=== PATIENT | male | born 1980 | race Caucasian/White ===

== ENCOUNTER 2023-07-31 07:23 | Inpatient (IN) | payer OTHER ==
[~2023-07-31] VITALS: Ht 175.3 cm; Wt 64.3 kg
[2023-07-31] VITALS (23 sets, daily range): BP systolic 107–157; BP diastolic 77–104
[~2023-07-31 07:23] MED LIST: DOXY100 PO; FLUC100 PO; HYDACE5 PO; NAPR500 PO
[2023-07-31 08:00] LABS: BASOPHILS ABSOLUTE AUTO 0.04 K/mm3 (0.00-0.23); BASOPHILS PERCENT AUTO 1 % (0-2); EOSINOPHILS ABSOLUTE AUTO 0.01 K/mm3 (0.00-0.68); EOSINOPHILS PERCENT AUTO 0 % (0-6); Hematocrit 37.8 % (37.0-53.0); Hemoglobin 13.5 g/dL (13.5-17.5); IMMATURE GRAN ABSOLUTE AUTO 0.01 K/mm3 (0.00-0.10); IMMATURE GRAN PERCENT AUTO 0 % (0-1); LYMPHOCYTES ABSOLUTE AUTO 0.83 K/mm3 (0.84-5.20); LYMPHOCYTES PERCENT AUTO 19 % (21-46); MONOCYTES ABSOLUTE AUTO 0.75 K/mm3 (0.16-1.47); MONOCYTES PERCENT AUTO 17 % (4-13); Mean Corpuscular HGB 33.1 pg (26.0-34.0); Mean Corpuscular HGB Conc 35.7 g/dL (31.5-36.5); Mean Corpuscular Volume 93 fL (80-100); Mean Platelet Volume 10.3 fL (9.1-12.4); NEUTROPHILS ABSOLUTE AUTO 2.83 K/mm3 (1.96-9.15); NEUTROPHILS PERCENT AUTO 63 % (41-73); Platelet Count 85 K/mm3 (150-400); RDW Coefficient Variation 12.9 % (11.7-14.2); RDW Standard Deviation 44.2 fL (35.1-46.3); Red Blood Cell Count 4.08 M/mm3 (4.30-5.90); White Blood Cell Count 4.47 K/mm3 (4.00-11.30)
[2023-07-31 08:22] LABS: Albumin, Blood 4.4 g/dL (3.4-5.0); Albumin/Globulin Ratio 1.1 (0.8-1.8); Bilirubin, Total 1.2 mg/dL (0.1-1.0); Bun/Creatinine Ratio 12.8 (12.0-20.0); Calcium, Blood 9.3 mg/dL (8.5-10.1); Creatinine, Blood 0.55 mg/dL (0.60-1.20); Potassium, Blood 3.1 mmol/L (3.5-5.5); Total Protein, Blood 8.4 g/dL (6.4-8.2)
[2023-07-31 10:37] LABS: International Normalized Ratio 0.98; Prothrombin Time Results 10.3 Sec (9.7-11.5)
--- NOTE | 2023-07-31 13:02 | NUR ---
ASSUMED CARE CARE WAS ASSUMED OF PT AT APPROXIMATELY 1200, PT TRANSFERED FROM ED. PT A/O X4, PT ABLE TO ANSWER QUESTIONS APPROPRIATELY AND MAKE NEEDS KNOWN. PT'S CIWA SCORE 18. PT EXTREMELY TREMULOUS. PT STATES H/X OF SEIZURES WITH ETOH WITHDRAWAL, NO SEIZURE ACTIVITY NOTED SINCE ARRIVAL TO UNIT. PT DENIES HALLUCINATIONS, TACTILE/AUDITORY DISTURBANCES. PT ON RA, O2 SATS > 92%. CARDIAC MONITORING REFLECTS NSR, HR 70s. SBP HYPERTENSIVE UPON ARRIVAL TO UNIT, SBP 120s AT THIS TIME. POTASSIUM AND MAG REPLACING THROUGH PIV AT THIS TIME. DURING HX PT STATES THAT HE DRINKS 12 BEERS/DAY. LAST DRINK WAS AT 0300 TODAY (07/31). PT STATES HE USED TO DRINK MORE THAN 18 BEERS/DAY BUT COULD NOT REMEMBER WHEN HE STARTED DECREASING HIS USE. PT STATES HE HAS BEEN HOSPITALIZED FOR ETOH WITHDRAWL IN THE PAST. PT STATES THAT WHEN HE DID HAVE A SEIZURE HE WAS AT HOME AND THEN WENT TO THE HOSPITAL AFTERWARDS, UNCLEAR WHEN.
[2023-07-31 17:11] LABS: Albumin, Blood 3.7 g/dL (3.4-5.0); Anion Gap 9 mmol/L (6-16); Blood Urea Nitrogen 4 mg/dL (8-24); Bun/Creatinine Ratio 6.3 (12.0-20.0); CO2, Blood 28 mmol/L (21-32); Calcium, Blood 8.4 mg/dL (8.5-10.1); Chloride, Blood 101 mmol/L (98-108); Creatinine, Blood 0.63 mg/dL (0.60-1.20); Glomerular Filtration Rate 123 (60-); Glucose, Blood 134 mg/dL (70-99); Phosphorus, Blood 2.7 mg/dL (2.5-4.9); Potassium, Blood 3.7 mmol/L (3.5-5.5); Sodium, Blood 138 mmol/L (136-145)
--- NOTE | 2023-07-31 18:10 | NUR ---
SHIFT SUMMARY PT REMAINS A/O X4. CIWA SCORE CURRENTLY 9. PT CONTINUES TO BE VERY TREMULOUS, BUT DENIES HALLUCINATIONS AND/OR AUDITORY/TACTILE DISTURBANCES. PT ON RA, O2 SATS > 95%. CARDIAC MONITORING REFLECTS NSR, HR 70s. BP STABLE T/O SHIFT. NS KCL INFUSING. PT ABLE TO USE URINAL AT BEDSIDE, BUT NEEDS ASSISTANCE GETTING TO EDGE OF BED. WILL CONTINUE TO MONITOR UNTIL CARE IS TRANSITIONED TO NOC SHIFT.
--- NOTE | 2023-07-31 19:58 | NUR ---
SPOKE TO PT MOTHER VIA PHONE, UPDATED HER ON PT CONDITION.
[2023-08-01] VITALS (14 sets, daily range): BP systolic 105–150; BP diastolic 79–102
[2023-08-01 03:49] LABS: BASOPHILS ABSOLUTE AUTO 0.03 K/mm3 (0.00-0.23); BASOPHILS PERCENT AUTO 1 % (0-2); EOSINOPHILS ABSOLUTE AUTO 0.12 K/mm3 (0.00-0.68); EOSINOPHILS PERCENT AUTO 4 % (0-6); Hematocrit 35.5 % (37.0-53.0); Hemoglobin 12.1 g/dL (13.5-17.5); IMMATURE GRAN ABSOLUTE AUTO 0.01 K/mm3 (0.00-0.10); IMMATURE GRAN PERCENT AUTO 0 % (0-1); LYMPHOCYTES ABSOLUTE AUTO 1.01 K/mm3 (0.84-5.20); LYMPHOCYTES PERCENT AUTO 33 % (21-46); MONOCYTES PERCENT AUTO 19 % (4-13); Mean Corpuscular HGB 33.2 pg (26.0-34.0); Mean Corpuscular HGB Conc 34.1 g/dL (31.5-36.5); Mean Platelet Volume 11.3 fL (9.1-12.4); NEUTROPHILS ABSOLUTE AUTO 1.34 K/mm3 (1.96-9.15); NEUTROPHILS PERCENT AUTO 43 % (41-73); Platelet Count 60 K/mm3 (150-400); RDW Coefficient Variation 12.9 % (11.7-14.2); RDW Standard Deviation 46.1 fL (35.1-46.3); Red Blood Cell Count 3.64 M/mm3 (4.30-5.90); White Blood Cell Count 3.11 K/mm3 (4.00-11.30)
[2023-08-01 03:54] LABS: Mean Corpuscular Volume 98 fL (80-100)
[2023-08-01 04:08] LABS: Albumin, Blood 3.6 g/dL (3.4-5.0); Albumin/Globulin Ratio 1.1 (0.8-1.8); Bilirubin, Total 1.8 mg/dL (0.1-1.0); Bun/Creatinine Ratio 5.4 (12.0-20.0); Calcium, Blood 8.4 mg/dL (8.5-10.1); Creatinine, Blood 0.73 mg/dL (0.60-1.20); Globulin, Blood 3.4 g/dL (2.2-4.0); Potassium, Blood 3.8 mmol/L (3.5-5.5)
--- NOTE | 2023-08-01 05:45 | NUR ---
SHIFT SUMMERY PT IS ALERT AND ORIENTED X3, ETOH W/DRAWAL. PRECEDEX STARTED AT 0.2MCG EARLIER IN SHIFT DUE TO W/DRAWAL SYMPTOMS AND PHENOBARBITAL MAX DOSES WERE ADMINISTERED. PT HAS TOLERATED WELL AND STATED THAT HE FEELS "PRETTY GOOD" AT THE CURRENT TIME. HE HAS BEEN SB-SR ON THE FIRE ALARM MECHANIC. BP HAS BEEN WNL. PT HAS BEEN AFEBRILE. HE HAS VOIDED IN THE URINAL. HE HAS BEEN COMPLIANT W/TREATMENTS FOR ME THIS SHIFT. PRECEDEX REMAINS AT 0.2MCG AND HAS NOT HAD TO BE INCREASED OVERNIGHT.
[2023-08-01 14:48] LABS: Source, Urine Voided
[2023-08-01 14:58] LABS: Appearance, Urine Clear (Clear); Bilirubin, Urine Neg (Neg); Blood, Urine 2+ (Neg); Color, Urine Amber (P-Yellow); Glucose Qualitative, Urine 2+ (Neg); Ketones, Urine Neg (Neg); Leukocyte Esterase, Urine Neg (Neg); Nitrite, Urine Neg (Neg); Protein, Urine 2+ (Neg); Specific Gravity, Urine 1.015 (1.003-1.022); Urobilinogen, Urine 1+ (Normal); pH, Urine 6.5 (5.0-8.0)
[2023-08-01 15:18] LABS: Bacteria Few /hpf; Squamous Epithelial Cells Few /hpf (Few); White Blood Cells, Urine 0-2 /hpf (0-5)
[2023-08-01 15:19] LABS: Mucus Light (0-Heavy)
--- NOTE | 2023-08-01 18:28 | NUR ---
Shift summary. Pt very stable this shift, CIWA scores <8. Precedex placed on standby at beginning of shift. Pt independent in room, able to ambulate in and out of bed w/out assistance. Pt able to shower this shift. VS stable, see chart for further details. Will report of to nightshift RN.
[2023-08-02] VITALS (8 sets, daily range): BP systolic 101–129; BP diastolic 72–94
[2023-08-02 01:09] LABS: HBSAG SCREEN Negative (Negative); HCV AB Non Reactive (Non Reactive); HEP A AB, IGM Negative (Negative); HEP B CORE AB, IGM Negative (Negative)
[2023-08-02 03:37] LABS: BASOPHILS ABSOLUTE AUTO 0.05 K/mm3 (0.00-0.23); BASOPHILS PERCENT AUTO 1 % (0-2); EOSINOPHILS ABSOLUTE AUTO 0.12 K/mm3 (0.00-0.68); EOSINOPHILS PERCENT AUTO 3 % (0-6); Hematocrit 37.1 % (37.0-53.0); Hemoglobin 12.8 g/dL (13.5-17.5); IMMATURE GRAN ABSOLUTE AUTO 0.01 K/mm3 (0.00-0.10); IMMATURE GRAN PERCENT AUTO 0 % (0-1); LYMPHOCYTES ABSOLUTE AUTO 0.95 K/mm3 (0.84-5.20); LYMPHOCYTES PERCENT AUTO 23 % (21-46); MONOCYTES ABSOLUTE AUTO 0.59 K/mm3 (0.16-1.47); MONOCYTES PERCENT AUTO 14 % (4-13); Mean Corpuscular HGB 33.4 pg (26.0-34.0); Mean Corpuscular HGB Conc 34.5 g/dL (31.5-36.5); Mean Corpuscular Volume 97 fL (80-100); Mean Platelet Volume 11.2 fL (9.1-12.4); NEUTROPHILS ABSOLUTE AUTO 2.46 K/mm3 (1.96-9.15); NEUTROPHILS PERCENT AUTO 59 % (41-73); Platelet Count 66 K/mm3 (150-400); RDW Coefficient Variation 12.5 % (11.7-14.2); RDW Standard Deviation 44.5 fL (35.1-46.3); Red Blood Cell Count 3.83 M/mm3 (4.30-5.90); White Blood Cell Count 4.18 K/mm3 (4.00-11.30)
[2023-08-02 03:55] LABS: Albumin, Blood 3.7 g/dL (3.4-5.0); Anion Gap 7 mmol/L (6-16); Blood Urea Nitrogen 6 mg/dL (8-24); Bun/Creatinine Ratio 8.7 (12.0-20.0); CO2, Blood 26 mmol/L (21-32); Calcium, Blood 8.9 mg/dL (8.5-10.1); Chloride, Blood 101 mmol/L (98-108); Creatinine, Blood 0.69 mg/dL (0.60-1.20); Glomerular Filtration Rate 120 (60-); Glucose, Blood 208 mg/dL (70-99); Phosphorus, Blood 3.7 mg/dL (2.5-4.9); Potassium, Blood 3.2 mmol/L (3.5-5.5); Sodium, Blood 134 mmol/L (136-145)
--- NOTE | 2023-08-02 05:51 | NUR ---
SHIFT SUMMERY PT IS ALERT AND ORIENTED X 4, ADMITTED FOR ETOH W/DRAWAL. HE WAS DOING PRETTY WELL WITH MINIMAL S/S OF W/DRAWAL UNTIL AROUND 4AM. PT BECAME INCREASINGLY RESTLESS AND I WALKED W/HIM AROUND THE HALLWAYS TO TRY AND MANAGE HIS ANXIETY. HIS ANXIETY WAS NOT ABATED BY SAID ACTIVITY. I SPOKE TO DR BARDALES AND UPDATED HIM ON PT CONDITION. SEE ORDERS. PT STATED THAT HE WAS FEELING BETTER AT THE CURRENT TIME. PT HAS BEEN INDEPENDENT W/TOILETING AND AMBULATION TO BEDSIDE COMMODE. PT HAS DENIED ANY PAIN. HE HAS BEEN ON ROOM AIR W/OXYGEN SAT 98-100%. HE HAS BEEN SR ON THE OPERATIONS PROGRAM MANAGER, BP WNL.
--- NOTE | 2023-08-02 08:30 | NUR ---
ASSUMED CARE / DR COOMBS: REPORT RECEIVED FROM DANIEL Adorno RN. ASSUMED CARE OF THIS PT AT APPROX 0700. ON ASSESSMENT, THE PT IS A&O TO ALL, COOPERATIVE W/ CARE. HE HAS BEEN ABLE TO REST FOR A FEW HOURS THIS AM AFTER NOT SLEEPING WELL DURING THE NIGHT. HE STS FEELING MILDLY ANXIOUS & RESTLESS, BUT OVERALL IMPROVED SINCE RECEIVING ONE TIME DOSE OF ATIVAN PER EMAR. SEE CIWA. HE IS SLIGHTLY TREMULOUS AT TIMES BUT ABLE TO AMBULATE STEADILY IN ROOM. LS CLEAR T/O, PT ON RA W/ O2 SATS > 95%. MONITOR SHOWS SR-ST, HR 80s AT REST, INCREASED TO 110s W/ EXERTION. PT TOLERATING PO INTAKE WELL W/ NO C/O NAUSEA OR ABD DISCOMFORT. VOIDS URINE W/O DIFFICULTY USING TOILET. SKIN CONDITION OVERALL INTACT, PT REPOSITIONS HIMSELF FOR COMFORT W/O DIFFICULTY. PROVIDER AT BEDSIDE THIS AM TO EVAL PT. HE HAS DISCUSSED POC FOR THIS PT REGARDING TITRATING DOWN PHENOBARBITAL DOSING & TRANSFERRING TO PCU. INTENT TO DISCHARGE IN APPROX 48 HRS IF PT CONTINUES IMPROVING AT THIS RATE. THIS RN HAS REQUESTED PRN MEDS FOR INCREASED RESTLESSNESS & ANXIETY AT NIGHT, PROVIDER HAS ORDERED PRN ATIVAN. NO OTHER CHANGES AT THIS TIME. WILL CONTINUE TO MONITOR & UPDATE NEEDED.
--- NOTE | 2023-08-02 12:24 | NUR ---
pt declined a shower today. Pt did reqest to get out of his room. offered a walk outside the unit. PT and this PCT walked out in the halls with heart monitor in place. Pt did c/o his feet hurting. RN notified.
--- NOTE | 2023-08-02 12:36 | NUR ---
TRANSFER TO PCU: REPORT HAS BEEN GIVEN TO CATERINA Adorno RN. PT TRANSFERRED TO PCU-08 AT APPROX 1235 VIA WC. CHART & ALL BELONGINGS TAKEN W/ PT AT THAT TIME. 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
--- NOTE | 2023-08-02 12:42 | NUR ---
pt from ICU in wheelchair to PCU 8. Ambulatory ad jensen in the room, PCT states she walked with him all around the hallway and he did fine. Heart rate 134 with ambulation in the room, asymptomatic. Sinus tachycardia 103 bpm while sitting on side of bed. Blood pressure is stable.
--- NOTE | 2023-08-02 16:22 | NUR ---
Pt awakened from nap for routine vital signs. Oriented, cooperative. Denies any withdrawl symptoms. AMBULATORY INDEPENDENTLY TO THE BATHROOM WHILE RN IN ROOM. Says that he has been really tired because it was no noisy in ICU that he hasn't slept in 2 days.
--- NOTE | 2023-08-02 18:45 | NUR ---
Pt is sleeping after eating dinner.
--- NOTE | 2023-08-02 22:16 | NUR ---
ASSUMED CARE THIS RN ASSUMED CARE OF PT APPROX 1900. BEDSIDE REPORT TAKEN FROM CATERINA DURÁN. PT SLEEPING IN BED. A&OX4 WHEN AWOKEN FOR PM MEDS. SBP 101, HR 60'S. NSR ON TELE. SPO2 >95% ON RA. CIWA ASSESSED W/ SCORE OF 1. PT STATES THAT HE FEELS EXTREMELY TIRED AFTER THE TRANSFER FROM ICU. DENIES PAIN. NO FURTHER NEEDS AT THIS TIME. CALL LIGHT WITHIN REACH, BED IN LOWEST POSITION.
[2023-08-03 04:41] VITALS: BP 120/91
[2023-08-03 04:58] LABS: BASOPHILS ABSOLUTE AUTO 0.05 K/mm3 (0.00-0.23); BASOPHILS PERCENT AUTO 1 % (0-2); EOSINOPHILS ABSOLUTE AUTO 0.19 K/mm3 (0.00-0.68); EOSINOPHILS PERCENT AUTO 4 % (0-6); Hematocrit 37.3 % (37.0-53.0); Hemoglobin 12.6 g/dL (13.5-17.5); IMMATURE GRAN ABSOLUTE AUTO 0.02 K/mm3 (0.00-0.10); IMMATURE GRAN PERCENT AUTO 0 % (0-1); LYMPHOCYTES ABSOLUTE AUTO 1.35 K/mm3 (0.84-5.20); LYMPHOCYTES PERCENT AUTO 29 % (21-46); MONOCYTES ABSOLUTE AUTO 0.97 K/mm3 (0.16-1.47); MONOCYTES PERCENT AUTO 21 % (4-13); Mean Corpuscular HGB 33.2 pg (26.0-34.0); Mean Corpuscular HGB Conc 33.8 g/dL (31.5-36.5); Mean Corpuscular Volume 98 fL (80-100); Mean Platelet Volume 11.5 fL (9.1-12.4); NEUTROPHILS PERCENT AUTO 45 % (41-73); Platelet Count 86 K/mm3 (150-400); RDW Coefficient Variation 12.3 % (11.7-14.2); RDW Standard Deviation 44.8 fL (35.1-46.3); Red Blood Cell Count 3.79 M/mm3 (4.30-5.90); White Blood Cell Count 4.68 K/mm3 (4.00-11.30)
--- NOTE | 2023-08-03 05:26 | NUR ---
END OF SHIFT NOTE NO ACUTE CHANGES SINCE ASSUMPTION OF CARE NOTE. ORIENTATION REMAINS UNCHANGED. HR 60-80'S, NSR ON TELE. SBP 100-120'S, DENIES CHEST PAIN/PRESSURE. SPO2 >95% ON RA. PT UP TO AMBULATE IN PATEL AROUND 0400 W/ NURSE SBA. CIWA OF 1 W/ MILD TREMOR NOTED. DENIES PAIN, SLEPT FOR MAJORITY OF NIGHT. REPOSITIONED SELF IN BED INDEPENDENTLY. NO OTHER NEEDS AT THIS TIME. CALL LIGHT WITHIN REACH, BED IN LOWEST POSITION.
[2023-08-03 05:36] LABS: Albumin, Blood 3.6 g/dL (3.4-5.0); Anion Gap 5 mmol/L (6-16); Blood Urea Nitrogen 8 mg/dL (8-24); Bun/Creatinine Ratio 10.2 (12.0-20.0); CO2, Blood 27 mmol/L (21-32); Calcium, Blood 9.2 mg/dL (8.5-10.1); Chloride, Blood 105 mmol/L (98-108); Creatinine, Blood 0.78 mg/dL (0.60-1.20); Glomerular Filtration Rate 116 (60-); Glucose, Blood 110 mg/dL (70-99); Phosphorus, Blood 4.1 mg/dL (2.5-4.9); Potassium, Blood 3.7 mmol/L (3.5-5.5); Sodium, Blood 137 mmol/L (136-145)
[2023-08-03 07:48] VITALS: BP 135/105
--- NOTE | 2023-08-03 08:17 | NUR ---
Pt up, ambulatory independently. States he really feels like going home today. Parents are at the bedside, just arrived this morning.
--- NOTE | 2023-08-03 10:56 | NUR ---
Pt ambulatory around the room, appears to be anxious, with trembling lip and tearful eyes and tells me that he is "about ready to rip all this out and get out of here". The pt said that he had not seen the doctor yet this morning. Called Dr. Zimmer to ask if he had talked to the patient this morning. He said that he had not, but will be here soon to see him. Notified the patient that Dr. Zimmer will be here soon to discuss plan. Pt said "well whose choice is it?"; I assured the patient that it is his own choice, and he is not obligated to stay in the hospital, but that the doctor would like to talk with him, and discuss with him what he would like, give him recommendations, and also provide prescriptions at discharge if needed. The pt seems willing to wait, but he is pacing around the room.
--- NOTE | 2023-08-03 11:12 | NUR ---
receiving lead are getting EKG done right now. Pt's heart rate 120 bpm while walking slowly around the room.
--- NOTE | 2023-08-03 11:29 | NUR ---
Dr. Zimmer is here, discharge orders are being done.
[2023-08-03] MEDS ORDERED: CHLO25 PO (11:59)
== END 2023-08-03 12:07 | disposition home or self-care (01) | DRG 897 ==
LOC: ER 07:23 → ICUE 09:55 → PCU 08-02 12:45
PROVIDERS: Emergency Medicine; ADMIT Student in an Organized Health Care Education/Training Program
DX: F10.239 Alcohol dependence with withdrawal, unspecified (principal); E87.6 Hypokalemia; E83.42 Hypomagnesemia; D69.6 Thrombocytopenia, unspecified; Y90.3 Blood alcohol level of 60-79 mg/100 ml; F17.210 Nicotine dependence, cigarettes, uncomplicated; F15.91 Other stimulant use, unspecified, in remission; K70.10 Alcoholic hepatitis without ascites; Z91.040 Latex allergy status
CPT/HCPCS: 36415; 76705; 80053; 80069; 80074; 81001; 82947; 83036; 83690; 83735; 84100; 84443; 85025; 85610; 93005; 93010; 94762; 96361; 96365; 96368; 96375; 96376; 99285-25; A9270; J1650; J2060; J2405; J2560; J3411; J3475; J3480; J7030; J7050

== ENCOUNTER 2024-04-07 14:15 | Emergency (ER) | payer OTHER ==
[~2024-04-07] VITALS: Ht 175.3 cm; Wt 70.8 kg
[~2024-04-07 14:15] MED LIST changes: +CHLO25 PO
[2024-04-07] MEDS ORDERED: LORazepam 2 MG/ML 1ML Injection IV ONE (14:55)
[2024-04-07 15:27] LABS: BASOPHILS ABSOLUTE AUTO 0.03 K/mm3 (0.00-0.23); BASOPHILS PERCENT AUTO 1 % (0-2); EOSINOPHILS ABSOLUTE AUTO 0.03 K/mm3 (0.00-0.68); EOSINOPHILS PERCENT AUTO 1 % (0-6); Hematocrit 40.6 % (37.0-53.0); Hemoglobin 14.4 g/dL (13.5-17.5); IMMATURE GRAN ABSOLUTE AUTO 0.02 K/mm3 (0.00-0.10); IMMATURE GRAN PERCENT AUTO 0 % (0-1); LYMPHOCYTES PERCENT AUTO 16 % (21-46); MONOCYTES ABSOLUTE AUTO 0.59 K/mm3 (0.16-1.47); MONOCYTES PERCENT AUTO 12 % (4-13); Mean Corpuscular HGB 34.4 pg (26.0-34.0); Mean Corpuscular HGB Conc 35.5 g/dL (31.5-36.5); Mean Corpuscular Volume 97 fL (80-100); Mean Platelet Volume 10.9 fL (9.1-12.4); NEUTROPHILS ABSOLUTE AUTO 3.46 K/mm3 (1.96-9.15); NEUTROPHILS PERCENT AUTO 70 % (41-73); Platelet Count 103 K/mm3 (150-400); RDW Coefficient Variation 11.7 % (11.7-14.2); RDW Standard Deviation 42.2 fL (35.1-46.3); Red Blood Cell Count 4.18 M/mm3 (4.30-5.90); White Blood Cell Count 4.93 K/mm3 (4.00-11.30)
[2024-04-07] MEDS ORDERED: Magnesium Oxide 400 MG Tab PO ONE (15:35)
[2024-04-07 15:43] LABS: Alanine Aminotransfer (ALT/SGP 100 U/L (12-78); Albumin, Blood 4.5 g/dL (3.4-5.0); Albumin/Globulin Ratio 1.2 (0.8-1.8); Alk Phos 146 U/L (50-136); Anion Gap 17 mmol/L (3-11); Aspartate Aminotrans (AST/SGOT 130 U/L (12-37); Bilirubin, Total 2.1 mg/dL (0.1-1.0); Blood Urea Nitrogen 8 mg/dL (8-24); Bun/Creatinine Ratio 10.7 (12.0-20.0); CO2, Blood 22 mmol/L (21-32); Calcium, Blood 8.9 mg/dL (8.5-10.1); Chloride, Blood 99 mmol/L (98-108); Creatinine, Blood 0.75 mg/dL (0.60-1.20); Ethanol (Alcohol), Blood, Med <3 mg/dL; Globulin, Blood 3.7 g/dL (2.2-4.0); Glomerular Filtration Rate 116 (60-); Glucose, Blood 260 mg/dL (70-99); Potassium, Blood 2.8 mmol/L (3.5-5.5); Sodium, Blood 135 mmol/L (136-145); Total Protein, Blood 8.2 g/dL (6.4-8.2)
[2024-04-07] MEDS ORDERED: Potassium Chloride 20 MEQ TabCR PO ONE (15:45)
[2024-04-07] MEDS ORDERED: MAGNESIUM OXID500 MG PO (16:24)
[2024-04-07] MEDS ORDERED: CHLO25 PO (16:24)
[2024-04-07] MEDS ORDERED: POTA20PAC PO (16:24)
[2024-04-07 17:15] VITALS: BP 130/100
== END 2024-04-07 17:20 | disposition home or self-care (01) ==
LOC: ER 14:15
PROVIDERS: Emergency Medicine
DX: F10.239 Alcohol dependence with withdrawal, unspecified (principal); R56.9 Unspecified convulsions; E87.6 Hypokalemia; E83.42 Hypomagnesemia; Y90.0 Blood alcohol level of less than 20 mg/100 ml; Z91.040 Latex allergy status
CPT/HCPCS: 80053; 83735; 85025; 96374; 99284-25; A9270; J2060

== ENCOUNTER 2025-08-17 17:49 | Emergency (ER) | payer OTHER ==
[~2025-08-17] VITALS: Ht 172.7 cm; Wt 83.9 kg
[~2025-08-17 17:49] MED LIST changes: +MAGNESIUM OXID500 MG PO; +POTA20PAC PO
[2025-08-17] MEDS ORDERED: Ondansetron HCl 2 MG / ML 2ML Vial IV PRN (18:05)
[2025-08-17 18:33] LABS: BASOPHILS ABSOLUTE AUTO 0.05 K/mm3 (0.00-0.23); BASOPHILS PERCENT AUTO 1 % (0-2); EOSINOPHILS ABSOLUTE AUTO 0.09 K/mm3 (0.00-0.68); EOSINOPHILS PERCENT AUTO 2 % (0-6); Hematocrit 39.7 % (37.0-53.0); Hemoglobin 13.6 g/dL (13.5-17.5); IMMATURE GRAN ABSOLUTE AUTO 0.01 K/mm3 (0.00-0.10); IMMATURE GRAN PERCENT AUTO 0 % (0-1); LYMPHOCYTES ABSOLUTE AUTO 2.52 K/mm3 (0.84-5.20); LYMPHOCYTES PERCENT AUTO 52 % (21-46); MONOCYTES ABSOLUTE AUTO 0.34 K/mm3 (0.16-1.47); MONOCYTES PERCENT AUTO 7 % (4-13); Mean Corpuscular HGB Conc 34.3 g/dL (31.5-36.5); Mean Corpuscular Volume 94 fL (80-100); NEUTROPHILS ABSOLUTE AUTO 1.85 K/mm3 (1.96-9.15); NEUTROPHILS PERCENT AUTO 38 % (41-73); NRBC ABSOLUTE 0.00 K/mm3 (0.00-0.02); NRBC Auto 0.0 /100 WBC (0.0-0.2); Platelet Count 132 K/mm3 (150-400); RDW Coefficient Variation 12.5 % (11.7-14.2); RDW Standard Deviation 43.3 fL (35.1-46.3)
[2025-08-17 18:49] LABS: Alanine Aminotransfer (ALT/SGP 74.0 U/L (12-78); Albumin, Blood 4.4 g/dL (3.4-5.0); Albumin/Globulin Ratio 1.2 (0.8-1.8); Anion Gap 16.0 mmol/L (3-11); Aspartate Aminotrans (AST/SGOT 97.0 U/L (12-37); Bilirubin, Total 1.1 mg/dL (0.1-1.0); Blood Urea Nitrogen 8.0 mg/dL (8-24); CO2, Blood 22.0 mmol/L (21-32); Calcium, Blood 9.3 mg/dL (8.5-10.1); Chloride, Blood 101.0 mmol/L (98-108); Creatinine, Blood 0.71 mg/dL (0.60-1.20); Globulin, Blood 3.7 g/dL (2.2-4.0); Glucose, Blood 100.0 mg/dL (70-99); Potassium, Blood 3.6 mmol/L (3.5-5.5); Sodium, Blood 135.0 mmol/L (136-145); Total Protein, Blood 8.1 g/dL (6.4-8.2)
[2025-08-17] MEDS ORDERED: NS 1,000 ML IV SCH (19:15)
[2025-08-17] MEDS ORDERED: FAMO20 PO (20:16)
[2025-08-17] MEDS ORDERED: ONDA4 PO (20:17)
[2025-08-17 20:45] VITALS: BP 125/82
== END 2025-08-17 21:05 | disposition home or self-care (01) ==
LOC: ER 17:49
PROVIDERS: Student in an Organized Health Care Education/Training Program
DX: R10.13 Epigastric pain (principal); R20.8 Other disturbances of skin sensation; Z79.899 Other long term (current) drug therapy; Z91.040 Latex allergy status
CPT/HCPCS: 80053; 83690; 85025; 93005; 93010; 96361; 96374; 96375; 99283-25; J2405; J7030